=== PATIENT | female | born 1985 | race Caucasian/White ===

== ENCOUNTER 2019-11-07 14:11 | Emergency (ER) | payer OTHER, SELFPAY ==
[2019-11-07 14:17] VITALS: BP 152/95; PULSE 115; RESP 14; TEMP 36.8; O2SAT 95; BMI 21.4
[2019-11-07 14:30] VITALS: PULSE 96
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
[2019-11-07 14:57] VITALS: BP 150/82; PULSE 104; RESP 16; TEMP 36.8; O2SAT 97
== END 2019-11-07 14:59 | disposition home or self-care (01) ==
LOC: ED 14:58
PROVIDERS: Emergency Provider Nurse Practitioner Family; PCP Nurse Practitioner Family
DX: Z02.89 Encounter for other administrative examinations (principal)
CPT/HCPCS: 99281